=== PATIENT | female | born 1960 | race Two or more races ===

== ENCOUNTER 2016-10-09 19:47 | Inpatient (IN) | payer MEDICARE, MEDICAID ==
[~2016-10-09] VITALS: Ht 162.6 cm; Wt 68.0 kg
[~2016-10-09 19:47] MED LIST: AMIT10TA6 PO; ASPI81CH49 PO; CLON0.3T PO; DILT40TA PO; ESOM40CA39 PO; HUMERA IN; HYDR100T9 PO; HYDR200T36 PO; LEFL20TA10 PO; METO100T87 PO; POTA20PO5 PO; PREDPOW63 PO; SULF500T5 PO; TRIA25CA
[2016-10-09] MEDS ORDERED: cefTRIAXone 1GM/50ML D5W 50 ML IV ONE (20:15)
[2016-10-09] MEDS ORDERED: ACETAMINOPHEN 325 MG TAB PO ONE ×2 (20:52→21:00)
[2016-10-09 21:23] LABS: Basophils # (auto) 0 uL; Basophils % (auto) 0.5 % (0.0-2.0); Eosinophils # (auto) 0 uL; Eosinophils % (auto) 1.3 % (0.0-7.0); Hematocrit 40.1 % (36.0-46.0); Hemoglobin 13.2 g/dL (12.2-16.2); Lymphocytes % (auto) 25.3 % (10.0-50.0); Mean Corpuscular Hemoglobin 29.2 pg (28.0-32.0); Mean Corpuscular Volume 88.7 fL (80.0-100.0); Mean Platelet Volume 9.6 fL (7.4-10.4); Monocytes # (auto) 0.3 uL; Monocytes % (auto) 8.5 % (0.0-12.0); Neutrophils # (auto) 2.5 uL; Neutrophils % (auto) 64.4 % (37.0-80.0); Platelet Count (auto) 162 10^3/uL (140-450); Red Cell Distribution Width 14.3 % (11.6-16.0)
[2016-10-09] MEDS ORDERED: cloNIDine HCL 0.1 MG TAB ONE (21:27)
[2016-10-09] MEDS ORDERED: cloNIDine HCL 0.1 MG TAB PO ONE (21:30)
[2016-10-09 21:38] LABS: INR 1.01 (0.9-1.15); Partial Thromboplastin Time 28.1 sec (22.64-33.71); Prothrombin Time 10.9 sec (9.37-12.3)
[2016-10-09 21:45] LABS: Albumin 3.2 g/dL (3.4-5.0); BUN/Creatinine Ratio 9.6; Calcium 8.3 mg/dL (8.5-10.1); Magnesium 2.1 mg/dL (1.6-2.6); Potassium 3.3 mmol/L (3.5-5.1)
[2016-10-09 21:50] LABS: Bilirubin, Total 0.4 mg/dL (0.2-1.0); Total Protein 6.8 g/dL (6.4-8.2)
[2016-10-09 21:51] LABS: Urine RBC None Seen /hpf (0 - 4)
[2016-10-09 21:52] LABS: B-Type Natriuretic Peptide 254.52 pg/mL (0-100)
[2016-10-09 21:53] LABS: Temperature: 22.9 C (20.0-25.0)
[2016-10-09 22:04] LABS: Urine Bilirubin Negative (Negative); Urine Blood Negative /uL (Negative); Urine Color Yellow (Yellow); Urine Glucose Normal (Normal); Urine Ketone Negative (Negative); Urine Nitrite Negative (Negative); Urine Squamous Epithelial Cell FEW /hpf (<5); Urine Urobilinogen Normal (Negative); Urine pH 6.5 (5.0-8.0)
[2016-10-09] MEDS ORDERED: POTASSIUM CHL 20 Meq TABLET PO ONE (22:45)
[2016-10-10] VITALS (8 sets, daily range): BP systolic 128–171; BP diastolic 63–84
[2016-10-10] MEDS ORDERED: ONDANSETRON HCL 4 MG/2 ML VIAL IV PRN (00:30)
[2016-10-10] MEDS ORDERED: guaiFENesin-DEXTROMETHORPHAN 5ML SYR PO PRN (00:30)
[2016-10-10] MEDS ORDERED: TEMAZEPAM 15 MG CAP PO PRN (00:30)
[2016-10-10] MEDS ORDERED: cloNIDine HCL 0.1 MG TAB PO PRN (00:30)
[2016-10-10] MEDS ORDERED: hydrALAZINE HCL 25 MG TAB PO ONE (00:30)
[2016-10-10] MEDS ORDERED: ACETAMINOPHEN 325 MG TAB PO PRN (00:30)
[2016-10-10] MEDS: HYDROcodone-ACET 5/325MG TAB PO PRN ×2 (01:43→22:04)
[2016-10-10] MEDS: ALBUTEROL SULF 2.5 MG/0.5ML(0.5%) NEB SOLN NEB PRN ×2 (07:21→19:03)
[2016-10-10] MEDS: ASPirin 81 mg TAB PO SCH (10:00)
[2016-10-10] MEDS: cefTRIAXone 1GM/50ML D5W 50 ML IV SCH (10:51)
[2016-10-10] MEDS: hydrALAZINE HCL 25 MG TAB PO SCH ×2 (10:52→22:03)
[2016-10-10] MEDS: VALSARTAN 80 MG TAB PO SCH (10:53)
[2016-10-10] MEDS: LABETALOL HCL 200 MG TAB PO SCH ×2 (10:54→22:04)
[2016-10-10] MEDS: FAMOTIDINE 20 MG TAB PO SCH ×2 (10:55→22:04)
[2016-10-10] MEDS: HCTZ 25 MG TAB PO SCH (10:55)
[2016-10-10] MEDS: FUROSEMIDE 40 MG TAB PO SCH (10:56)
[2016-10-10] MEDS: ENOXAPARIN SOD 40 MG/0.4 ML SYRINGE SC SCH (10:56)
[2016-10-10] MEDS: BOOST PLUS 8 ounce PO SCH ×2 (12:00→18:17)
[2016-10-10] MEDS ORDERED: ATORVASTATIN 20 MG TAB PO SCH (22:00)
[2016-10-10] MEDS ORDERED: PATIENTS OWN MEDICATION (simvastatin 20 MG) PO SCH ×2 (22:00)
[2016-10-11 05:00] VITALS: BP 151/76
[2016-10-11 06:14] LABS: Basophils # (auto) 0 uL; Basophils % (auto) 0.7 % (0.0-2.0); DEFINITIVE VIEW TRANSMISSION; Eosinophils # (auto) 0.1 uL; Eosinophils % (auto) 5.3 % (0.0-7.0); Hematocrit 38.3 % (36.0-46.0); Hemoglobin 12.8 g/dL (12.2-16.2); Lymphocytes # (auto) 1.5 uL; Lymphocytes % (auto) 53.4 % (10.0-50.0); Mean Corpuscular Hemoglobin 29.3 pg (28.0-32.0); Mean Corpuscular Hgb Conc. 33.3 g/dL (32.0-36.0); Mean Platelet Volume 9.8 fL (7.4-10.4); Monocytes # (auto) 0.4 uL; Monocytes % (auto) 13.1 % (0.0-12.0); Neutrophils # (auto) 0.8 uL; Neutrophils % (auto) 27.5 % (37.0-80.0); Platelet Count (auto) 150 10^3/uL (140-450); Red Cell Distribution Width 14.3 % (11.6-16.0); White Blood Cell 2.8 10^3/uL (4.4-10.8)
[2016-10-11 06:49] LABS: Albumin 3.2 g/dL (3.4-5.0); BUN/Creatinine Ratio 15.7; Bilirubin, Total 0.4 mg/dL (0.2-1.0); Calcium 8.5 mg/dL (8.5-10.1); Potassium 3.2 mmol/L (3.5-5.1); Total Protein 6.5 g/dL (6.4-8.2)
[2016-10-11 08:00] VITALS: BP 131/66
[2016-10-11] MEDS: BOOST PLUS 8 ounce PO SCH ×2 (08:00→12:08)
[2016-10-11 09:16] VITALS: BP 161/87
[2016-10-11] MEDS: cefTRIAXone 1GM/50ML D5W 50 ML IV SCH (09:16)
[2016-10-11] MEDS: ENOXAPARIN SOD 40 MG/0.4 ML SYRINGE SC SCH (09:17)
[2016-10-11] MEDS: ASPirin 81 mg TAB PO SCH (09:17)
[2016-10-11] MEDS: VALSARTAN 80 MG TAB PO SCH (09:18)
[2016-10-11] MEDS: LABETALOL HCL 200 MG TAB PO SCH (09:19)
[2016-10-11] MEDS: FAMOTIDINE 20 MG TAB PO SCH (09:19)
[2016-10-11] MEDS: FUROSEMIDE 40 MG TAB PO SCH (09:20)
[2016-10-11] MEDS: HCTZ 25 MG TAB PO SCH (09:20)
[2016-10-11] MEDS: hydrALAZINE HCL 25 MG TAB PO SCH (09:29)
[2016-10-11] MEDS ORDERED: POTASSIUM CHL 20 Meq TABLET PO ONE (11:00)
[2016-10-11] MEDS ORDERED: LEVO500T3 PO (13:04)
[2016-10-11 13:10] VITALS: BP 151/77
[2016-10-11 13:27] VITALS: BP 151/77
[2016-10-11 13:34] VITALS: BP 151/77
== END 2016-10-11 16:43 | disposition home or self-care (01) | DRG 291 ==
LOC: EDBD 19:47 → ER 19:49 → EDUNIT# 19:50 → EAST 19:50
PROVIDERS: ADMIT Nurse Practitioner; ATTEND Internal Medicine
DX: I50.33 Acute on chronic diastolic (congestive) heart failure (principal); J18.9 Pneumonia, unspecified organism; J44.0 Chronic obstructive pulmonary disease with (acute) lower respiratory infection; E44.0 Moderate protein-calorie malnutrition; J44.1 Chronic obstructive pulmonary disease with (acute) exacerbation; I11.0 Hypertensive heart disease with heart failure; E78.5 Hyperlipidemia, unspecified; K21.9 Gastro-esophageal reflux disease without esophagitis; M06.9 Rheumatoid arthritis, unspecified; J20.9 Acute bronchitis, unspecified; G47.00 Insomnia, unspecified; F41.9 Anxiety disorder, unspecified; E87.6 Hypokalemia; M94.0 Chondrocostal junction syndrome [Tietze]; Z68.25 Body mass index [BMI] 25.0-25.9, adult; Z82.49 Family history of ischemic heart disease and other diseases of the circulatory system; Z78.0 Asymptomatic menopausal state; Z83.3 Family history of diabetes mellitus
CPT/HCPCS: 36415; 71010; 80053; 81001; 83605; 83735; 83880; 84443; 84484; 85025; 85610; 85730; 87040; 87070; 87205; 93005; 93306; 94640; 96365; J0696

== ENCOUNTER → 2017-09-09 | Outpatient (CLI) | payer MEDICARE, OTHER ==
[~2017-09-09] MED LIST changes: +APIX5TAB PO; -ASPI81CH49 PO; +ATOR20TA50 PO; +CLON0.2T PO; -CLON0.3T PO; +DIL120C PO; -DILT40TA PO; -HUMERA IN; +HYDR-4298 PO; -HYDR100T9 PO; -HYDR200T36 PO; +LEFL1TAB3 PO; -LEFL20TA10 PO; -METO100T87 PO; +MIR30T PO; +POTA10TA34 PO; -POTA20PO5 PO; +SOTA80TA20 PO; -TRIA25CA
[2017-09-09 13:30] LABS: Albumin 3.5 g/dL (3.4-5.0); BUN/Creatinine Ratio 11.8; Calcium 9.4 mg/dL (8.5-10.1); Magnesium 2.2 mg/dL (1.6-2.6); Potassium 4.8 mmol/L (3.5-5.1)
[2017-09-09 13:33] LABS: Bilirubin, Total 0.5 mg/dL (0.2-1.0); Total Protein 7.8 g/dL (6.4-8.2)
[2017-09-09 14:15] LABS: Uric Acid 4.3 mg/dL (2.6-6.0)
== END | disposition home or self-care (01) ==
LOC: LAB 12:46
PROVIDERS: ATTEND Internal Medicine
DX: I12.9 Hypertensive chronic kidney disease with stage 1 through stage 4 chronic kidney disease, or unspecified chronic kidney disease (principal); E11.22 Type 2 diabetes mellitus with diabetic chronic kidney disease; N18.3 Chronic kidney disease, stage 3 (moderate); M06.9 Rheumatoid arthritis, unspecified; Z79.899 Other long term (current) drug therapy; Z79.82 Long term (current) use of aspirin; Z79.01 Long term (current) use of anticoagulants
CPT/HCPCS: 36415; 80053; 83735; 83970; 84443; 84550

== ENCOUNTER → 2018-01-06 | Outpatient (CLI) | payer MEDICARE, OTHER ==
[~2018-01-06] MED LIST changes: -POTA10TA34 PO; +POTA1TAB61 PO
== END | disposition home or self-care (01) ==
LOC: LAB 09:00
PROVIDERS: ATTEND Internal Medicine
DX: Z12.11 Encounter for screening for malignant neoplasm of colon (principal); I11.0 Hypertensive heart disease with heart failure; I50.9 Heart failure, unspecified; Z79.899 Other long term (current) drug therapy
CPT/HCPCS: 82270

== ENCOUNTER 2019-04-05 18:31 | Emergency (ER) | payer MEDICARE, OTHER ==
[~2019-04-05] VITALS: Ht 170.2 cm; Wt 96.6 kg
[~2019-04-05 18:31] MED LIST changes: +CLON0.1T PO; -DIL120C PO; +DILT120C12 PO; +DILT60TA27 PO; +FURO1TAB31 PO; +LEFL20TA PO; +MIN25T PO; +PRE1T PO; +SOTA80TA PO; +SULF500T8 PO
[2019-04-05 18:43] VITALS: BP 173/78
[2019-04-05] MEDS ORDERED: ACETAMINOPHEN 500 MG TAB PO ONE (22:30)
[2019-04-05] MEDS ORDERED: IBUPROFEN 800 MG TAB PO ONE (22:30)
== END 2019-04-05 22:30 | disposition home or self-care (01) ==
LOC: ER 18:33 → MERGE 18:33 → ER 22:30
DX: S93.402A Sprain of unspecified ligament of left ankle, initial encounter (principal); I11.0 Hypertensive heart disease with heart failure; I50.9 Heart failure, unspecified; K21.9 Gastro-esophageal reflux disease without esophagitis; Z79.899 Other long term (current) drug therapy; W20.8XXA Other cause of strike by thrown, projected or falling object, initial encounter; Y93.G1 Activity, food preparation and clean up; Y92.090 Kitchen in other non-institutional residence as the place of occurrence of the external cause; Y99.8 Other external cause status
CPT/HCPCS: 73610

== ENCOUNTER → 2020-08-03 | Outpatient (CLI) | payer MEDICARE, OTHER ==
[~2020-08-03] MED LIST changes: +DILT60TA PO; -DILT60TA27 PO
== END | disposition home or self-care (01) ==
LOC: XY 09:55
PROVIDERS: ATTEND Internal Medicine
DX: I65.23 Occlusion and stenosis of bilateral carotid arteries (principal); E04.2 Nontoxic multinodular goiter
CPT/HCPCS: 93886

== ENCOUNTER → 2020-08-03 | Outpatient (CLI) | payer MEDICARE, OTHER ==
[2020-08-03 11:17] LABS: Basophils # (auto) 0 10 ^3/uL (0-0.2); Basophils % (auto) 0.4 % (0.0-2.0); Eosinophils # (auto) 0.5 10 ^3/uL (0-0.8); Hematocrit 36.8 % (36.0-46.0); Hemoglobin 12.4 g/dL (12.2-16.2); Lymphocytes # (auto) 0.8 10 ^3/uL (0.4-5.4); Lymphocytes % (auto) 17.2 % (10.0-50.0); Mean Corpuscular Hgb Conc. 33.7 g/dL (32.0-36.0); Mean Corpuscular Volume 91.8 fL (80.0-100.0); Monocytes # (auto) 0.1 10 ^3/uL (0-1.3); Neutrophils # (auto) 3.5 10 ^3/uL (1.6-8.6); Neutrophils % (auto) 70.4 % (37.0-80.0); Platelet Count (auto) 214 10^3/uL (140-450); Red Blood Cells 4.01 10^6/uL (4.0-5.20); Red Cell Distribution Width 13.7 % (11.8-14.3); White Blood Cell 4.9 10^3/uL (4.4-10.8)
[2020-08-03 11:37] LABS: Potassium 4.1 mmol/L (3.5-5.1)
[2020-08-03 11:49] LABS: BUN/Creatinine Ratio 17.1; Bilirubin, Total 0.3 mg/dL (0.2-1.0); Calcium 8.8 mg/dL (8.5-10.1); Total Protein 6.2 g/dL (6.4-8.2)
== END | disposition home or self-care (01) ==
LOC: LAB 10:42
PROVIDERS: ATTEND Internal Medicine
DX: I10 Essential (primary) hypertension (principal); I48.91 Unspecified atrial fibrillation; E78.5 Hyperlipidemia, unspecified
CPT/HCPCS: 36415; 80053; 80061; 84439; 84443; 85025

== ENCOUNTER → 2020-08-09 | Outpatient (CLI) | payer MEDICARE, OTHER | END | disposition home or self-care (01) | LOC: XYW 08:44 | PROVIDERS: ATTEND Internal Medicine | DX: I07.1 Rheumatic tricuspid insufficiency (principal); I11.9 Hypertensive heart disease without heart failure | CPT/HCPCS: 93306 ==

== ENCOUNTER → 2020-11-17 | Outpatient (CLI) | payer MEDICARE, OTHER ==
[2020-11-17 09:25] LABS: Basophils # (auto) 0 10 ^3/uL (0-0.2); Basophils % (auto) 0.6 % (0.0-2.0); Eosinophils # (auto) 0.3 10 ^3/uL (0-0.8); Eosinophils % (auto) 10.5 % (0.0-7.0); Hematocrit 39.2 % (36.0-46.0); Hemoglobin 13.2 g/dL (12.2-16.2); Lymphocytes % (auto) 36.4 % (10.0-50.0); Mean Corpuscular Hemoglobin 31.3 pg (28.0-32.0); Mean Corpuscular Hgb Conc. 33.8 g/dL (32.0-36.0); Mean Corpuscular Volume 92.6 fL (80.0-100.0); Monocytes # (auto) 0 10 ^3/uL (0-1.3); Neutrophils # (auto) 1.4 10 ^3/uL (1.6-8.6); Neutrophils % (auto) 51.5 % (37.0-80.0); Nucleated Red Blood Cells % 0.3 %; Platelet Count (auto) 273 10^3/uL (140-450); Red Blood Cells 4.23 10^6/uL (4.0-5.20); Red Cell Distribution Width 14.2 % (11.8-14.3); White Blood Cell 2.8 10^3/uL (4.4-10.8)
[2020-11-17 10:56] LABS: Potassium 4.6 mmol/L (3.5-5.1)
[2020-11-17 11:03] LABS: Folate (Folic Acid) > 24.00 ng/mL (5.38-24)
[2020-11-17 11:05] LABS: Albumin 3.1 g/dL (3.4-5.0); BUN/Creatinine Ratio 20.7; Bilirubin, Total 0.3 mg/dL (0.2-1.0); Calcium 8.7 mg/dL (8.5-10.1); Total Protein 6.4 g/dL (6.4-8.2); Uric Acid 6.9 mg/dL (2.6-6.0)
[2020-11-18 17:17] LABS: Urine Blood Negative /uL (Negative)
== END | disposition home or self-care (01) ==
LOC: LAB 09:05
PROVIDERS: ATTEND Internal Medicine
DX: E61.2 Magnesium deficiency (principal); E79.0 Hyperuricemia without signs of inflammatory arthritis and tophaceous disease; E78.49 Other hyperlipidemia; D51.9 Vitamin B12 deficiency anemia, unspecified; R73.09 Other abnormal glucose; R94.6 Abnormal results of thyroid function studies; R82.90 Unspecified abnormal findings in urine; R68.89 Other general symptoms and signs; R82.991 Hypocitraturia; E55.9 Vitamin D deficiency, unspecified
CPT/HCPCS: 36415; 80053; 80061; 81003; 82306; 82607; 82746; 83036; 83735; 84443; 84550; 85025; 85049

== ENCOUNTER → 2023-02-12 | Outpatient (CLI) | payer MEDICARE, OTHER ==
[~2023-02-12] MED LIST changes: +AMIT10TA12 PO; -AMIT10TA6 PO; +SULF500T57 PO; -SULF500T8 PO
== END | disposition home or self-care (01) ==
LOC: XYW 14:20
PROVIDERS: ATTEND Student in an Organized Health Care Education/Training Program
DX: R06.02 Shortness of breath (principal)
CPT/HCPCS: 93306

== ENCOUNTER → 2023-03-20 | Outpatient (CLI) | payer MEDICARE, OTHER ==
[2023-03-20 09:33] LABS: Basophils # (auto) 0 10 ^3/uL (0-0.2); Basophils % (auto) 0.5 % (0.0-2.0); Eosinophils # (auto) 0.1 10 ^3/uL (0-0.8); Hematocrit 41.8 % (36.0-46.0); Hemoglobin 13.8 g/dL (12.2-16.2); Lymphocytes # (auto) 1.7 10 ^3/uL (0.4-5.4); Lymphocytes % (auto) 42.6 % (10.0-50.0); Mean Corpuscular Hemoglobin 30.7 pg (28.0-32.0); Mean Corpuscular Hgb Conc. 32.9 g/dL (32.0-36.0); Mean Corpuscular Volume 93.2 fL (80.0-100.0); Monocytes # (auto) 0.1 10 ^3/uL (0-1.3); Monocytes % (auto) 3.1 % (0.0-12.0); Neutrophils % (auto) 50.8 % (37.0-80.0); Nucleated Red Blood Cells % 0.1 %; Red Blood Cells 4.49 10^6/uL (4.0-5.20)
[2023-03-20 09:49] LABS: Urine Bacteria NONE SEEN /hpf (None Seen); Urine Blood Negative /uL (Negative); Urine Clarity Clear (Clear); Urine Color Yellow (Yellow); Urine Protein, UAD Negative (Negative); Urine Specific Gravity 1.014 (1.001-1.035); Urine Urobilinogen Normal (Negative); Urine WBC 14 /hpf (0 - 5); Urine pH 5.5 (5.0-8.0)
[2023-03-20 10:10] LABS: Erythrocyte Sedimentation Rate 16 mm/hr (0-20)
[2023-03-20 10:30] LABS: Alanine Aminotransferase 49 U/L (7-40); Alkaline Phosphatase 62 U/L (46-116); Anion Gap 6 (5-15); Aspartate Aminotransferase 29 U/L (13-40); BUN/Creatinine Ratio 11.8 (10.0-20.0); Blood Urea Nitrogen 10 mg/dL (9-23); Calcium 9.1 mg/dL (8.5-10.1); Carbon Dioxide 26 mmol/L (20-30); Chloride 110 mmol/L (98-107); Cholesterol 178 mg/dL (< 200); Glucose 134 mg/dL (74-106); LDL Cholesterol 118 mg/dL (< 100); Potassium 4.2 mmol/L (3.5-5.1); Sodium 142 mmol/L (136-145); Triglycerides 174 mg/dL (< 150)
[2023-03-20 10:31] LABS: Bilirubin, Total 0.4 mg/dL (0.2-1.0); HDL Cholesterol 41 mg/dL (40-59)
[2023-03-20 10:32] LABS: Total Protein 6.4 g/dL (5.7-8.2)
[2023-03-20 10:34] LABS: Free T4 (Free Thyroxine) 1.19 ng/dL (0.89-1.76)
[2023-03-20 11:59] LABS: Magnesium 1.8 mg/dL (1.6-2.6)
== END | disposition home or self-care (01) ==
LOC: LAB 09:12
PROVIDERS: ATTEND Internal Medicine
DX: I10 Essential (primary) hypertension (principal); I48.91 Unspecified atrial fibrillation; Z79.52 Long term (current) use of systemic steroids; Z79.899 Other long term (current) drug therapy
CPT/HCPCS: 36415; 80053; 80061; 81001; 83036; 83735; 84439; 84443; 84481; 85025; 85652

== ENCOUNTER → 2024-09-24 | Outpatient (CLI) | payer MEDICARE, OTHER ==
[~2024-09-24] VITALS: Ht 170.2 cm; Wt 99.8 kg
[~2024-09-24] MED LIST changes: -HYDR-4298 PO; +HYDR100T10 PO; +POTA-215 PO; -POTA1TAB61 PO
[2024-09-24] MEDS: REGADENOSON 0.4 MG/5 ML SYRG IV ONE ×2 (08:57→09:06)
--- NOTE | 2024-09-24 13:19 | DVHSR ---
APPROVED REPORT Exam: Nuclear Stress Test BMI: 0 Stress Test Details HR Max Heart Rate (APMHR): 155.201664 bpm Target HR (85% APMHR): 131.886984 bpm BP ECG Stress ECG Conclusion NORMAL PERFUSION SCAN NO ISCHEMIA LVEF 60% NM EXAM: Myocardial Perfusion REST/STRESS Imaging Protocol: Rest Tc-99m/Stress Tc-99m 1 day Resting Data Rest SPECT myocardial perfusion imaging was performed in supine position 60 minutes following the int ravenous injection of 12 mCi of Tc-99m Sestamibi. Time of rest injection: 08:00 Date: 09/24/2024 Time of rest imagin:00 Date: 09/24/2024 Administration Route: IV Administration Site: Right Hand Pharmacologic Stress Pharmacologic stress test was performed by injecting Regadenoson 0.4 mg IV push followed by the intra venous injection of 33.2 mCi of Tc-99m Sestamibi. Time of stress injection: 09:10 Date: 09/24/2024 Time of stress imagin:10 Date: 09/24/2024 Administration Route: IV Administration Site: Right Hand Gated Stress SPECT was performed 60 minutes after stress injection. The images were gated to evaluate regional wall motion and calculate left ventricular ejection fracti on. Stress only was performed in the position. Nuclear Conclusion Nuclear Findings: negative for ischemia NORMAL PERFUSION SCAN NO ISCHEMIA LVEF 60%
== END | disposition home or self-care (01) ==
LOC: XYW 07:54
PROVIDERS: ATTEND Internal Medicine
DX: R94.31 Abnormal electrocardiogram [ECG] [EKG] (principal); I27.20 Pulmonary hypertension, unspecified; I11.0 Hypertensive heart disease with heart failure; I50.9 Heart failure, unspecified; I25.2 Old myocardial infarction; I48.0 Paroxysmal atrial fibrillation; D68.69 Other thrombophilia; E11.65 Type 2 diabetes mellitus with hyperglycemia; M06.9 Rheumatoid arthritis, unspecified
CPT/HCPCS: 78452; 93017; A9500; J2785